=== PATIENT | male | born 1995 | race Caucasian/White ===

== ENCOUNTER 2024-11-15 15:14 | Emergency (ER) | payer OTHER ==
[~2024-11-15] VITALS: Ht 170.2 cm; Wt 89.0 kg
[2024-11-15 15:28] VITALS: BP 132/92; PULSE 114; RESP 18; TEMP 98.9; O2SAT 99
== END 2024-11-15 17:30 | disposition left against medical advice (07) ==
LOC: ER 15:14
DX: R10.9 Unspecified abdominal pain (principal); Z53.21 Procedure and treatment not carried out due to patient leaving prior to being seen by health care provider